=== PATIENT | male | born 1965 | race Caucasian/White ===

== ENCOUNTER → 2016-12-10 | Outpatient (CLI) | payer BC, OTHER ==
[~2016-12-10] VITALS: Ht 185.4 cm; Wt 113.4 kg
[~2016-12-10] MED LIST: AMLO10TAB OR; DIET; FLUT1LOT; LIDOCAINE 2% INJ 100 MG/5 ML SDV (FOR ANES.) As Ordered ONE; LISI40TAB PO; LORA10TA2 PO; NS 1,000 ML IV ONE; PRAV40TA2 PO; PROPOFOL 200 MG/20 ML VIAL As Ordered ONE; VICO5TAB OR; [UNRECOGNIZED DRUG - OTHER]; [UNRECOGNIZED DRUG - OTHER]; [UNRECOGNIZED DRUG - OTHER]; [UNRECOGNIZED DRUG - REMARK]; azor PO; vicodin PO
--- NOTE | 2016-12-10 12:38 | ROOR ---
Patient Name: Edwin Guzman Procedure Date: 12/10/2016 12:14 PM Date of : 1965 Age: 51 Room: [facility] Gender: Male Note Status: Finalized Procedure: Total Colonoscopy to Cecum + Cold Snare Polypectomy Indications: Screening for colorectal malignant neoplasm, Last colonoscopy 10 years ago Providers: Win Valentin MD Referring MD: Regina Abreu NP Requesting Provider: Medicines: Monitored Anesthesia Care Complications: No immediate complications. Procedure: Pre-Anesthesia Assessment: - The heart rate, respiratory rate, oxygen saturations, blood pressure, adequacy of pulmonary ventilation, and response to care were monitored throughout the procedure. The Colonoscope was introduced through the anus and advanced to the cecum, identified by appendiceal orifice and ileocecal valve. Findings: The perianal and digital rectal examinations were normal. Non-bleeding internal hemorrhoids were found during retroflexion. The hemorrhoids were small and Grade I (internal hemorrhoids that do not prolapse). Multiple small and large-mouthed diverticula were found in the recto-sigmoid colon, sigmoid colon and descending colon. A small polyp was found in the mid ascending colon. The polyp was sessile. The polyp was removed with a cold snare. Resection and retrieval were complete. The exam was otherwise without abnormality on direct and retroflexion views. Impression: - Non-bleeding internal hemorrhoids. - Diverticulosis in the recto-sigmoid colon, in the sigmoid colon and in the descending colon. - One small polyp in the mid ascending colon, removed with a cold snare. Resected and retrieved. - The examination was otherwise normal on direct and retroflexion views. - The exam was otherwise normal to the cecum. Recommendation: - Patient has a contact number available for emergencies. The signs and symptoms of potential delayed complications were discussed with the patient. Return to normal activities tomorrow. Written discharge instructions were provided to the patient. - High fiber diet. - Discharge patient to home. - Continue present medications. - Await pathology results. - Telephone GI clinic for pathology results in 1 week. - Repeat colonoscopy for surveillance based on pathology results. - Return to referring physician. - Check Portal Online for Path Results.([email or web address] - The findings and recommendations were discussed with the patient's family. Win Valentin MD Win Valentin MD 12/10/2016 12:37:39 PM This report has been signed electronically. Number of Addenda: 0 Note Initiated On: 12/10/2016 12:14 PM Estimated Blood Loss: Estimated blood loss: none.
[2016-12-10 12:50] VITALS: BP 149/90
== END | disposition home or self-care (01) ==
LOC: M OPP 10:51
PROVIDERS: ATTEND Internal Medicine Gastroenterology
DX: Z12.11 Encounter for screening for malignant neoplasm of colon (principal); D12.2 Benign neoplasm of ascending colon; K64.0 First degree hemorrhoids; K57.30 Diverticulosis of large intestine without perforation or abscess without bleeding; I10 Essential (primary) hypertension; E78.5 Hyperlipidemia, unspecified; Z88.8 Allergy status to other drugs, medicaments and biological substances; Z79.899 Other long term (current) drug therapy

== ENCOUNTER → 2017-10-20 | Outpatient (CLI) | payer BC, OTHER | LOC: M LRY 10:03 | DX: M25.562 Pain in left knee (principal) | CPT/HCPCS: 73564 ==

== ENCOUNTER → 2017-11-20 | Outpatient (CLI) | payer BC, OTHER | LOC: M RAD 09:31 | DX: S83.232A Complex tear of medial meniscus, current injury, left knee, initial encounter (principal); M22.42 Chondromalacia patellae, left knee; X58.XXXA Exposure to other specified factors, initial encounter; Y92.9 Unspecified place or not applicable; M25.462 Effusion, left knee | CPT/HCPCS: 73721 ==

== ENCOUNTER → 2017-12-11 | Outpatient (CLI) | payer BC, OTHER ==
[2017-12-11 07:38] LABS: ANION GAP 9 MEQ/L (8-16); BLOOD UREA NITROGEN 23 MG/DL (7-18); CALCIUM LEVEL 8.4 MG/DL (8.5-10.1); CARBON DIOXIDE LEVEL 27 MEQ/L (21-32); CHLORIDE LEVEL 106 MEQ/L (98-107); CREATININE FOR GFR 0.87 MG/DL (0.70-1.30); GLOMERULAR FILTRATION RATE > 60.0 (>56); GLUCOSE, FASTING 99 MG/DL (70-100); POTASSIUM SERUM 4.5 MEQ/L (3.5-5.1); SODIUM LEVEL 142 MEQ/L (136-145)
== END ==
LOC: M LAB 06:33
DX: Z01.818 Encounter for other preprocedural examination (principal); S83.249A Other tear of medial meniscus, current injury, unspecified knee, initial encounter; X58.XXXA Exposure to other specified factors, initial encounter; Y92.89 Other specified places as the place of occurrence of the external cause; I10 Essential (primary) hypertension; Z79.899 Other long term (current) drug therapy
CPT/HCPCS: 93005

== ENCOUNTER → 2019-11-10 | Outpatient (REF) | payer OTHER ==
[~2019-11-10] MED LIST changes: -LIDOCAINE 2% INJ 100 MG/5 ML SDV (FOR ANES.) As Ordered ONE; +LISI40TA4 PO; -LISI40TAB PO; +LORA-243 PO; -LORA10TA2 PO; -NS 1,000 ML IV ONE; -PROPOFOL 200 MG/20 ML VIAL As Ordered ONE; +tumeric PO
[2019-11-11 10:14] LABS: HEPATITIS C VIRUS ABY INDEX 0.1 INDEX (<0.8); HIV 1&2 SCREEN CENTAUR NEGATIVE (NEGATIVE)
== END ==
LOC: M LAB REF 13:35
PROVIDERS: ATTEND Registered Nurse
DX: R21 Rash and other nonspecific skin eruption (principal)

== ENCOUNTER → 2019-12-02 | Outpatient (CLI) | payer BC, OTHER ==
[~2019-12-02] MED LIST changes: +LISI40TA PO; -LISI40TA4 PO; -tumeric PO
[2019-12-02 12:11] LABS: BASO % 0.5 % (0.0-1.0); EOS # 0.3 10^3/uL (0.0-0.5); EOS % 3.8 % (0.0-3.0); HEMATOCRIT 43.6 % (42.0-52.0); HEMOGLOBIN 14.1 g/dl (13.5-17.5); LYMPH # 1.2 10^3/uL (1.5-5.0); LYMPH % 15.7 % (24.0-44.0); MEAN CORPUSCULAR HEMOGLOBIN 29.9 pg (27.0-33.0); MEAN CORPUSCULAR HGB CONC 32.3 g/dl (32.0-36.5); MEAN CORPUSCULAR VOLUME 92.4 fl (80.0-96.0); MONO % 13.3 % (0.0-5.0); NEUTROPHILS # 4.9 10^3/uL (1.5-8.5); PLATELET COUNT, AUTOMATED 236 10^3/uL (150-450); RED BLOOD COUNT 4.72 10^6/uL (4.30-6.10); WHITE BLOOD COUNT 7.5 10^3/uL (4.0-10.0)
[2019-12-02 12:51] LABS: ALBUMIN 3.9 GM/DL (3.2-5.2); ALT/SGPT 46 U/L (12-78); BILIRUBIN,DIRECT 0.1 MG/DL (0.0-0.2); BILIRUBIN,TOTAL 0.5 MG/DL (0.2-1.0); FERRITIN 308 NG/ML (26-388); FREE T4 0.99 NG/DL (0.76-1.46); IMMUNOGLOBULIN E 25.8 IU/ML (<100); IRON (FE) 80 UG/DL (65-175); TOTAL PROTEIN 7.3 GM/DL (6.4-8.2)
--- NOTE | 2019-12-03 01:56 | REP ---
Clinical: Pruritus . Comparison: 04/30/2011 . Technique: PA and lateral. Findings: The mediastinum and cardiac silhouette are normal. The lung carr are clear and without acute consolidation, effusion, or pneumothorax. The skeletal structures are intact and normal. Impression: 1. No acute cardiopulmonary process. Electronically Signed by Luis Peterson MD 12/03/2019 01:48 A
[2019-12-03 11:23] LABS: ALBUMIN % 61.5 % (55.8-66.1); ALPHA-1-GLOBULIN % 4.1 % (2.9-4.9); ALPHA-2-GLOBULINS 0.77 GM/DL (0.42-0.99); ALPHA-2-GLOBULINS % 10.5 % (7.1-11.8); BETA-1-GLOBULINS 0.46 GM/DL (0.28-0.60); BETA-1-GLOBULINS % 6.3 % (4.7-7.2); BETA-2-GLOBULINS 0.45 GM/DL (0.19-0.55); BETA-2-GLOBULINS % 6.1 % (3.2-6.5); GAMMA GLOBULIN % 11.5 % (11.1-18.8); GAMMA GLOBULINS 0.84 GM/DL (0.65-1.58)
[2019-12-03 11:24] LABS: ALBUMIN 4.49 GM/DL (3.29-5.55)
== END ==
LOC: M LAB 11:14
PROVIDERS: ATTEND Dermatology
DX: L29.9 Pruritus, unspecified (principal)

== ENCOUNTER → 2019-12-15 | Outpatient (REF) | payer OTHER ==
[~2019-12-15] MED LIST changes: -LISI40TA PO; +LISI40TA4 PO; +tumeric PO
== END ==
LOC: M LAB REF 16:47
PROVIDERS: ATTEND Registered Nurse
DX: L29.9 Pruritus, unspecified (principal)

== ENCOUNTER → 2020-01-15 | Outpatient (CLI) | payer OTHER ==
[~2020-01-15] MED LIST changes: +LISI40TA PO; -LISI40TA4 PO
[2020-01-15 16:07] LABS: BLOOD UREA NITROGEN 16 MG/DL (7-18); CREATININE FOR GFR 0.84 MG/DL (0.70-1.30); GLOMERULAR FILTRATION RATE > 60.0 (>56)
== END ==
LOC: M LRY 11:17
PROVIDERS: ATTEND Orthopaedic Surgery
DX: S46.011A Strain of muscle(s) and tendon(s) of the rotator cuff of right shoulder, initial encounter (principal); X58.XXXA Exposure to other specified factors, initial encounter; Y92.9 Unspecified place or not applicable

== ENCOUNTER → 2020-05-06 | Outpatient (CLI) | payer OTHER | LOC: M LABSMTC 10:24 | PROVIDERS: ATTEND Anesthesiology | DX: Z01.812 Encounter for preprocedural laboratory examination (principal); Z20.828 Contact with and (suspected) exposure to other viral communicable diseases ==

== ENCOUNTER 2020-05-11 07:35 | Day surgery (SDC) | payer BC, OTHER ==
[~2020-05-11] VITALS: Ht 182.9 cm; Wt 109.8 kg
[~2020-05-11 07:35] MED LIST changes: +LIDOCAINE 1% MDV 20ML VIAL SQ PRN; +LR 1,000 ML IV ONE; +ceFAZolin SOD 2 GM in IV 1 EA IV ONE
[2020-05-11] MEDS ORDERED: LIDOCAINE 1% MDV 20ML VIAL ONE (07:36)
[2020-05-11] MEDS ORDERED: ROPIvacaine 0.5% 30ML INJECTION (J2795 PER 1MG) ONE (07:36)
[2020-05-11] MEDS ORDERED: dexameTHASONE 10MG/1ML VIAL PRES.FREE (J1100 PER 1MG) ONE (07:36)
[2020-05-11] MEDS ORDERED: LIDOCAINE 1% MDV 20ML VIAL As Ordered ONE (09:00)
[2020-05-11] MEDS ORDERED: EPINEPHrine 1MG/ML INJ 30ML MD-VIAL As Ordered ONE (09:00)
[2020-05-11] MEDS ORDERED: MIDAZOLAM INJ 2MG/2ML VIAL (J2250 PER 1MG) As Ordered ONE ×2 (10:07→11:13)
[2020-05-11] MEDS ORDERED: fentaNYL 100 MCG/2 ML INJECTION (J3010) As Ordered ONE ×2 (10:07→11:13)
[2020-05-11] MEDS: fentaNYL 100 MCG/2 ML INJECTION (J3010) IV PRN ×2 (10:26→10:30)
[2020-05-11] MEDS: MIDAZOLAM INJ 2MG/2ML VIAL (J2250 PER 1MG) IV PRN ×2 (10:26→10:27)
[2020-05-11] MEDS ORDERED: dexameTHASONE 4 MG/ML 1ML VIAL (J1100 PER 1MG) As Ordered ONE (11:13)
[2020-05-11] MEDS ORDERED: SUGAMMADEX SODIUM 500 MG/5 ML VIAL (BRIDION) As Ordered ONE (11:13)
[2020-05-11] MEDS ORDERED: ONDANSETRON 4MG/2ML VIAL As Ordered ONE (11:13)
[2020-05-11] MEDS ORDERED: ROCURONIUM BROMIDE 50 MG/5 ML VIAL As Ordered ONE ×2 (11:13→11:32)
[2020-05-11] MEDS ORDERED: METOCLOPRAMIDE INJ 10MG/2ML VIAL (J2765 PER 1) As Ordered ONE (11:13)
[2020-05-11] MEDS ORDERED: propofoL 200 MG/20 ML VIAL As Ordered ONE (11:13)
[2020-05-11] MEDS ORDERED: LIDOCAINE 2% 100MG/5ML SDV (FOR ANES.) As Ordered ONE (11:13)
[2020-05-11] MEDS ORDERED: ACETAMINOPHEN 1000MG 100ML IV BTL (OFIRMEV) (J0131 PER 10MG) As Ordered ONE (11:34)
[2020-05-11] MEDS ORDERED: LABETALOL 100MG/20ML VIAL As Ordered ONE (13:49)
[2020-05-11] MEDS ORDERED: oxyCODONE 5MG TAB PO PRN (14:30)
[2020-05-11] MEDS ORDERED: ONDANSETRON 4MG/2ML VIAL IV PRN (14:30)
[2020-05-11] MEDS ORDERED: LR 1,000 ML IV SCH ×2 (14:30)
[2020-05-11] MEDS ORDERED: fentaNYL 100 MCG/2 ML INJECTION (J3010) IV PRN (14:30)
[2020-05-11 15:30] VITALS: BP 172/91
--- NOTE | 2020-05-11 17:14 | ECGEPIP ---
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
--- NOTE | 2020-05-12 07:28 | RO ---
DATE OF OPERATION: 05/11/2020 PREOPERATIVE DIAGNOSES: 1. Right shoulder rotator cuff tear. 2. Right shoulder biceps tendinopathy. 3. Right shoulder superior labral tear. 4. Right shoulder AC joint arthritis. 5. Right shoulder impingement. POSTOPERATIVE DIAGNOSES: 1. Right shoulder rotator cuff tear. 2. Right shoulder biceps tendinopathy. 3. Right shoulder superior labral tear. 4. Right shoulder AC joint arthritis. 5. Right shoulder impingement. PROCEDURES: 1. Right shoulder arthroscopic rotator cuff repair including subscapularis. 2. Right shoulder open subpectoral biceps tenodesis. 3. Right shoulder arthroscopic extensive debridement including labral debridement, chondroplasty, and subacromial decompression with acromioplasty. 4. Right shoulder arthroscopic distal clavicle excision. SURGEON: Yusuf Dominguez MD BAIL BONDSMAN: MEGHAN Mo ANESTHESIA: General with preoperative nerve block. IV FLUIDS: Lactated Ringer's. EBL: 10 mL. IMPLANTS: Arthrex biceps button x1; Arthrex 4.75 mm PEEK SwiveLock anchor x3; Arthrex 5.5 mm PEEK SwiveLock anchor x2. CLOSURE: Monocryl and nylon. DESCRIPTION OF PROCEDURE: The patient was identified in the preoperative holding area and the right shoulder was marked. He had an interscalene nerve block. He was brought to the operating room and placed supine on well padded OR table with beanbag. General anesthesia was induced. Examination revealed 180 degrees of forward flexion, 90 of external rotation, no increased anterior posterior translation. He was placed into left side down lateral decubitus position with axillary roll and all bony prominences were well padded. Bilateral SCDs for DVT prophylaxis. He was secured to the OR table and then the right arm was placed into Arthrex Star Sleeve lateral decubitus traction salazar with 10 pounds of traction. The right shoulder was prepped and draped in normal sterile fashion with ChloraPrep. He received appropriate IV antibiotics within one hour of incision. Prior to incision time out was performed per hospital protocol. Cristi Soto was present for the entire procedure and participated in all essential portions of the procedure. This included patient positioning and draping, holding the arthroscope, holding retractors in the tenodesis, assisting with whip-stitching the tendon as well as assisting with anchor placement using the mallet and awl, retrieving sutures and performing the wound closure, applied the dressing and sling. The right shoulder was insufflated with lactated Ringer's. A standard posteromedial portal made with 11-blade. 30-degree arthroscope was introduced into the joint. Diagnostic arthroscopy was carried out revealing primarily grade 1 chondromalacia in the glenohumeral joint, few thin flaps of cartilage off the humeral head and glenoid. There was split tearing in the upper border of the subscapularis. There was a near full thickness tear in the supraspinatus. Long head of the biceps was medially subluxated. It also had a large partial tear. An anterior working portal was established through the rotator interval and the biceps was released with the meniscal biter to complete the tenotomy. It withdrew from the joint. Biceps stump was debrided with shaver. I then performed chondroplasty and labral debridement with a shaver debriding the type 2 SLAP tear. Rotator interval tissue was cleared out along with subscapularis to improve visualization. An accessory superolateral portal was established. Ring curet was used to clear soft tissue off the lesser tuberosity to create a bleeding surface. Scorpion was used to pass FiberTape through the upper border of the subscapularis to healthy tissue and then the sutures retrieved out the original anterior portal, loaded through a PEEK 4.75 mm SwiveLock anchor. Awl was used to create a socket in the lesser tuberosity. The anchor was docked, sutures tensioned and anchor was malleted and inserted by hand with excellent fixation. This nicely restored the subscapularis. We then proceeded with an open biceps tenodesis. Incision was made with 15-blade just lateral to the axilla, dissection with Metzenbaum scissors down to the biceps fascia which was carefully opened with scissors. Long head of the biceps was dissected out with right angle clamps. The biceps had a massive intrasubstance tear with flattening and hypertrophy. The Arthrex Proximal Biceps Kit was opened, running locking whipstitch placed with the FiberLoop and then excess tendon trimmed and sent to pathology for routine. Sutures loaded through the button per routine. Brackney tip drill bit used to create a unicortical drill hole within the bicipital groove. The button was passed through the drill hole on the senior software systems engineer, sutures were tunneled to flip the button and reduce the tendon into the groove nicely. Curve-free needle used to pass one limb of the suture back to the tendon, knot tied by hand to lock the construct in place. This nicely restored the resting tension of the biceps. The incision was then extensively irrigated. Deep fascia closed with 2-0 Vicryl followed by 2-0 Vicryl subcuticular closure and running Monocryl. The end of the case Steri-Strips were placed. Arthroscope was now placed into the subacromial space where there was very dense bursitis. An extensive bursectomy was performed with shaver and cautery through a lateral working portal. The CA ligament was partially released and a moderate size subacromial spur was removed with a bur. We then proceeded with arthroscopic distal clavicle excision. There was [id number] contact and through the anterior working portal I removed approximately 6-7 mm of the distal clavicle. The clavicle was noted to extend quite superior and great care was taken to ensure no residual bony impingement. Bony debris was removed with the shaver. We then proceeded with rotator cuff repair. There was delaminated tear where the bursal surface of the supraspinatus had torn and retracted anteromedial and then the deep supraspinatus and infraspinatus had torn and retracted slightly posteromedial. The ring curet was used to clear soft tissue off the tuberosity to create a bleeding surface. We then proceeded with modified SpeedBridge repair technique. I percutaneously placed two 4.75 mm PEEK SwiveLock anchors just off the articular surface, one anterior, one posterior and the islet stitches were first passed from anterior to posterior followed by the tapes in horizontal mattress fashion. Those steps were repeated from the posterior anchor. Islet sutures were then tied down with the knot pusher using alternating half-hitch technique and that set the leading edge of the supraspinatus and the central islet sutures were used to compress the delaminated tendon edges to make it move as a unit. The far anterior islet sutures, one central islet suture and the anterior tapes were brought out through the cannula laterally, loaded for 5.5 mm SwiveLock and then awl was used to create a socket. The anchor docked, sutures tensioned, anchor malleted and inserted by hand and had excellent fixation. These steps were repeated with the remaining sutures for the posterolateral anchor to complete the SpeedBridge. There were no dog ears. Shoulder was gently internally and externally rotated. The cuff moved nicely as a unit. Portals closed with nylon suture. Bulky sterile dressing was applied. At the time of this dictation the sling is being applied and shortly he will be extubated and transferred to the PACU. GEORGI
== END 2020-05-11 15:32 | disposition home or self-care (01) ==
LOC: M SDC 07:35
PROVIDERS: ATTEND Orthopaedic Surgery
DX: M75.101 Unspecified rotator cuff tear or rupture of right shoulder, not specified as traumatic (principal); M75.21 Bicipital tendinitis, right shoulder; M19.011 Primary osteoarthritis, right shoulder; M75.41 Impingement syndrome of right shoulder; I10 Essential (primary) hypertension; E78.5 Hyperlipidemia, unspecified; Z79.899 Other long term (current) drug therapy; Z88.1 Allergy status to other antibiotic agents
CPT/HCPCS: 23430; 29823; 29824; 29826; 29827; 64415; 93005; C1713; J0131; J0690; J1100; J2250; J2405; J2765; J2795; J3010

== ENCOUNTER → 2020-10-03 | Outpatient (CLI) | payer SELFPAY ==
[~2020-10-03] MED LIST changes: -LIDOCAINE 1% MDV 20ML VIAL SQ PRN; -LISI40TA PO; +LISI40TA4 PO; -LR 1,000 ML IV ONE; -ceFAZolin SOD 2 GM in IV 1 EA IV ONE
== END ==
LOC: M LABSMTC 11:23
PROVIDERS: ATTEND Pediatrics
DX: Z20.822 Contact with and (suspected) exposure to COVID-19 (principal)

== ENCOUNTER → 2023-07-16 | Outpatient (REF) | payer BC, OTHER | LOC: M LAB REF 12:29 | PROVIDERS: ATTEND Nurse Practitioner Adult Health | DX: Z11.59 Encounter for screening for other viral diseases (principal) ==

== ENCOUNTER → 2023-08-28 | Outpatient (CLI) | payer OTHER, BC | LOC: M WUC 14:44 | PROVIDERS: ATTEND Nurse Practitioner Adult Health | DX: R05.9 Cough, unspecified (principal) ==

== ENCOUNTER → 2023-10-25 | Outpatient (CLI) | payer BC, OTHER ==
[2023-10-25 11:22] LABS: HEMOGLOBIN A1c 5.6 % (4.0-6.0)
[2023-10-25 11:26] LABS: C REACTIVE PROTEIN QUANTITATIV < 0.40 MG/DL (<1.0); LIPASE 34 U/L (12-53)
[2023-10-25 11:27] LABS: AMYLASE 55 U/L (30-118)
[2023-10-25 11:28] LABS: ALBUMIN 4.1 G/DL (3.2-5.2); ALKALINE PHOSPHATASE 59 U/L (46-116); ALT/SGPT 60 U/L (7.0-40); AST/SGOT 45 U/L (<34); BILIRUBIN,TOTAL 0.5 MG/DL (0.3-1.2); BLOOD UREA NITROGEN 15 MG/DL (9-23); CALCIUM LEVEL 9.4 MG/DL (8.5-10.1); CARBON DIOXIDE LEVEL 28 MMOL/L (20-31); CHLORIDE LEVEL 102 MMOL/L (98-107); CPK CREATINE PHOSPHOKINASE 279 U/L (46-171); GLOMERULAR FILTRATION RATE > 60.0 (>56); GLUCOSE, FASTING 94 MG/DL (60-100); POTASSIUM SERUM 4.5 MMOL/L (3.5-5.1); RHEUMATOID FACTOR QUANT 4.2 IU/ML (<14); SODIUM LEVEL 140 MMOL/L (136-145)
[2023-10-26 21:08] LABS: ANA (HEP2) Negative (.); BILE ACIDS FRACTIONATED 1.7 umol/L (0.0-10.0); SSA SJOGRENS A <0.2 AI (0.0-0.9); SSB SJOGRENS B <0.2 AI (0.0-0.9)
== END ==
LOC: M WUC 08:53
PROVIDERS: ATTEND Registered Nurse
DX: R10.10 Upper abdominal pain, unspecified (principal); L29.8 Other pruritus; E78.00 Pure hypercholesterolemia, unspecified; R73.03 Prediabetes; R05.9 Cough, unspecified

== ENCOUNTER → 2023-11-01 | Outpatient (CLI) | payer BC ==
[~2023-11-01] MED LIST changes: +ISOVUE-370 76% 100ML VIAL ONE
== END ==
LOC: M PLAIMG 13:51
PROVIDERS: ATTEND Registered Nurse
DX: R10.10 Upper abdominal pain, unspecified (principal); K76.0 Fatty (change of) liver, not elsewhere classified; N28.1 Cyst of kidney, acquired; N20.0 Calculus of kidney; K57.30 Diverticulosis of large intestine without perforation or abscess without bleeding; K40.20 Bilateral inguinal hernia, without obstruction or gangrene, not specified as recurrent
CPT/HCPCS: 74177; Q9967